=== PATIENT | male | born 1980 | race Caucasian/White ===

== ENCOUNTER 2019-09-12 15:39 | Outpatient (CLI) | payer OTHER, SELFPAY ==
--- NOTE | 2019-09-12 15:47 | MR_ITS ---
WS: [id number] MRI LEFT KNEE NONCONTRAST TECHNIQUE: Axial PD, coronal PD fat sat, coronal PD, sagittal PD, and sagittal PD fat-sat images светлана winkler. CLINICAL INFORMATION: S89.90XA Unspecified injury of unspecified lower leg, ini... COMPARISON: None. FINDINGS: Subluxation of the patella from the trochlear groove with diffuse edema involving the later al femoral condyle consistent with contusion and recent dislocation. Diffuse edema involving the medi al patellar retinaculum which appears completely torn. Lateral retinaculum is intact. Medial collater al ligament appears intact with small amount of fluid along the superficial fibers. Mild edema in the medial tibial plateau. Lateral collateral ligament appears intact. Small suspected medial patella ch ondral avulsion best seen on the coronal imaging adjacent to the medial patella facet. Distal quadriceps and patella tendons are intact. Slightly hypertrophic patella. Normal anterior and posterior cruciate ligaments. Moderate suprapatellar effusion. Small amount of edema in Hoffa's fat pad. Small amount of prepatellar and infrapatellar soft tissue edema. Mild chronic thinning of the medial and lateral meniscus. No acute appearing meniscal tears. MR/MR knee LT wo con* [id number] IMPRESSION: 1. Evidence of recent patellar dislocation with subluxed patella laterally tod ay. 2. Diffuse edema consistent with contusion and osteochondral injury involving the lateral femur consistent with recent patella dislocation. Medial retinaculu m appears completely torn. Lateral retinaculum appears intact. 3. Suspected patella chondral avulsion with small fragment adjacent to the med ial patella facet better seen on the coronal imaging. 4. Moderate suprapatellar effusion with subcutaneous edema. Medial and lateral collateral ligaments appear intact. 5. Normal ACL and PCL.
== END 2019-09-12 15:40 | disposition home or self-care (01) ==
LOC: RADWPI 15:41
PROVIDERS: Family Provider Nurse Practitioner Family; PCP Nurse Practitioner Family; Visit Provider Nurse Practitioner Family
DX: S89.92XA Unspecified injury of left lower leg, initial encounter; X58.XXXA Exposure to other specified factors, initial encounter; M25.462 Effusion, left knee; R60.9 Edema, unspecified
CPT/HCPCS: 73721

== ENCOUNTER → 2019-09-29 13:35 | Outpatient (BNVA) | payer OTHER, SELFPAY | PROVIDERS: Family Provider Nurse Practitioner Family; PCP Nurse Practitioner Family; Visit Provider Orthopaedic Surgery | DX: M25.562 Pain in left knee (principal) | CPT/HCPCS: 73562 ==

== ENCOUNTER 2019-11-13 09:15 | Day surgery (SDC) | payer OTHER, SELFPAY ==
[2019-11-12 13:22] VITALS: BMI 33.9
[2019-11-13] VITALS (11 sets, daily range): BP systolic 105–136; BP diastolic 63–95; PULSE 76–85; RESP 16–26; TEMP 36.2–36.8; O2SAT 92–97
--- NOTE | 2019-11-13 | SCC_ITS ---
Procedure Done: Diagnostic arthroscopy left knee 24.8 seconds of fluoroscopic guidance, for a cumulative dose of 1.8 mGy, was provided to Dr. Garnett by the radiology department. C-arm images of the LEFT knee were saved for the patient's permanent record. [facility]
[2019-11-13] MEDS: sodium chloride 0.9% 1,000 ML 30 ML IV (09:54)
--- NOTE | 2019-11-13 10:32 | ANES.PREANE2 ---
Pre-Anesthetic Assessment Pre-Anesthetic Assessment: Height/Weight: Height 1.83 m Weight 113.398 kg Temp Pulse Resp BP Pulse Ox 97.7 F 80 18 132/63 97 11/13/19 09:31 11/13/19 09:31 11/13/19 09:31 11/13/19 09:31 11/13/19 09:31 Preop Diagnosis: Left patellar instability Proposed Procedure: Operation Date: 11/13/19 11:25 Proposed Procedures p Patellofemoral Ligament Reconstruction Knee Arthroscopy 77413 M24.461(Left) - Rashad Garnett MD Familial anesthetic complications: None Was Beta Stephany taken within 24 hours: N/A Last intake: Intake Last Liquid Date 11/12/19 Last Liquid Time 23:00 Last Solid Date 11/12/19 Last Solid Time 23:00 Social: Social History: No alcohol and No tobacco Exam: Pre-Anes Outpt Exam: alert, oriented x 3, clear to auscultation bilaterally and regular rate & rhythm Airway: Cervical ROM: WNL MP: 3 Dentition: Full Metabolic: Metabolic: Morbid obesity Neuropsych: Neuropsych: Seizure (last one 2013 -epilepsy) Anesthetic Plan: ASA status: 1 Anesthesia: General Risk of > 500 ml blood loss (7ml/kg in children): No Meds/Allergies Current Medications: Current Medications Generic Name Dose Route Start Last Admin Trade Name Freq PRN Reason Stop Dose Admin Sodium Chloride 1,000 mls @ 30 ml s/hr 11/13/19 07:45 11/13/19 09:54 Sodium Chloride 0.9% IV 11/14/19 07:44 30 mls/hr .Q24H RONNI Administration PFSH Anesthesia PFSH: Social History Smoking and tobacco status: never smoked Data Anesthesia Cardiac Studies: No Data to Display
--- NOTE | 2019-11-13 10:51 | XR_ITS ---
WS: [id number] EXAM: Fluoroscopy provided to the orthopedic service for visualization during left knee surgery DATE OF EXAMINATION: 11/13/2019, 1300 hours COMPARISON: MRI of the left knee from 09/12/2019 HISTORY: 39 years old with recent patellar dislocation reduction injury with retinacular injury as well as cho ndral avulsion. FLUOROSCOPY TIME: 24.8 seconds FINDINGS: Fluoroscopy provided to the orthopedic service for visualization during left knee surgery. Fluoroscop ic spot images show skin leyla noted over the anterior medial leg and a single skin staple laterall y. Appears to be a defect within the patella presumably related to the surgical procedure.. Please se e operative report for further details. SC/C-arm Fluoroscopy [id number] IMPRESSION: Fluoroscopy provided to the orthopedic service for visualization during left kn ee surgery.
--- NOTE | 2019-11-13 11:17 | W.PM.OPSFHP ---
Same Day Surgery H&P Indication for Procedure/HPI DATE OF PROCEDURE: November 13, 2019 CHIEF COMPLAINT/INDICATIONFOR SURGICAL PROCEDURE: Current lateral patellar dislocations left knee. Patient has failed conservative measures and has elected to proceed with patellofemoral ligament reconstruction. Imaging is suggested no bony malalignment. MRI suggested cartilaginous injury to the lateral femoral condyle and there avulsion fracture off the medial patella. Diagnostic arthroscopy will be performed to evaluate the status the joint and remove loose fragments or debris that could affect his ultimate outcome PREOP DIAGNOSIS: Left patellar instability PLANNED PROCEDRUE: Operation Date: 11/13/19 11:25 Proposed Procedures p Patellofemoral Ligament Reconstruction Knee Arthroscopy 94235 M24.461(Left) - Rashad Garnett MD Medications/Allergies* Home Medications Medication Instructions Recorded Confirmed Type levetiracetam 750 mg tablet 750 mg PO BID 08/30/19 11/13/19 History Allergies/Adverse Reactions Allergy/AdvReac Type Severity Reaction Status Date / Time acetaminophen [From Tylenol] Allergy HIVES Verified 09/30/19 08:52 Current Medications: Generic Name Dose Route Start Last Admin Trade Name Freq PRN Reason Stop Dose Admin Sodium Chloride 1,000 mls @ 30 mls/hr 11/13/19 07:45 11/13/19 09:54 Sodium Chloride 0.9% IV 11/14/19 07:44 30 mls/hr .Q24H RONNI Administration Pertinent History/Comorbid Conditions* Social History Smoking and tobacco status: never smoked Pertinent Exam Findings alert, oriented x 3, clear to auscultation bilaterally and regular rate & rhythm Recommendations Surgery/Procedure today Coding Level of Care Code Acute Oceanographer Assistant for Rukhsana Ambrosio
--- NOTE | 2019-11-13 13:07 | P.OP_ITS ---
Operative Report Date of procedure: November 13, 2019 Pre-op Diagnosis: Left patellar instability Post-op diagnosis: same Post-op Findings: Patient had no significant chondromalacia or loose bodies within the knee joint. Procedure Done: Diagnostic arthroscopy left knee Medial patellofemoral ligament reconstruction with autogenous gracilis graft Implants: 7 by 25 mm Biosure Bradley [employer]hew PEEK interference screw Pathology: none sent Surgeon: Rashad Garnett Anesthesia: General Estimated blood loss (mL): 20 Tourniquet time (min): 53 Complications: None Findings: Patient had no chondromalacia or loose bodies within the left knee. He had no abnormal trochlear or other bony anatomy. He did have excessive mobility of his patella and is patella could be displaced over 50% of its width laterally. This was identical to the contralateral side but due to his persistent symptoms of instability a soft tissue ligament reconstruction was chosen Condition: stable Disposition: PACU Brief History: Oscar is a 39-year-old male with recurrent episodes of lateral patellofemoral instability. He failed a program of therapy. Due to persistent symptoms and normal bony anatomy a medial patellofemoral ligament was chosen to address the problem. An MRI suggested chondral injury over the lateral femoral condyle and a possible avulsed fragment from the medial patella diagnostic arthroscopy was chosen to evaluate the chondral surfaces and possibly remove loose bodies at present Procedure: The patient was taken to the operating room and given a general anesthesia. He was given 2 g of Ancef. He was prepped and draped in the supine position with a tourniquet on the left thigh. A timeout was performed. Initially the knee was entered through a standard inferior medial and inferior l ateral portal. The diagnostic portion of the arthroscopy was performed. Essentially no loose bodies or chondromalacia was identified. A decision was then made to proceed with the patellofemoral ligament reconstruction. The tourniquet was inflated 350 mmHg. A 4 cm long incision was made over the medial tibia and dissection carried down to the Pez anserine tendons. Sartorius fascia was split in line with the fibers and a well-developed semi-tendinosis and gracilis tendon were identified. The gross list tendon was dissected free distally and using a closed-end tendon stripper a tendon was harvested. On the back table it was freed of remaining muscular tissue. Both the tendon ends of the tendon were fixed with ultra braid suture. A second incision was made incorporating the medial portal extending proximally and posteriorly over a distance of 4 cm. Dissection was carried down through the skin to the medial extensor retinaculum and medial patella. Lecture cautery is used to dissect down to the medial patella at its midpoint. A Bradley [employer] Nephew guidepin was then driven from this point anteriorly and slightly proximally exiting over the central proximal patella. Over this was passed the Endobutton reamer. One end of the gracilis tendon sutures were passed through the eyelet of the pin and shuttled through this drilled tunnel in the patella. Dissection was then accomplished beneath the vastus medialis oblique is musculature exiting in the vastus intermedius insertion on the superior patella. This was used to grasp the free end of suture passed through the patella and this was retrieved bringing that free and down beneath the vastus medialis oblique us. C-arm was then brought into the wound and the exact position of Schottle's point determined being between the superior aspect the intercondylar notch and just distal to the possible extend to the articular cartilage and just anterior to a line extending from the posterior cortex of the femur. The Bradley [employer]hew guidepin was then passed from that point anteriorly and slightly proximally across the femur exiting the lateral skin. Over this was passed a 7 mm reamer to a depth of approximately 40 mm. The tunnel was completed with the Endobutton reamer. Both sets of the sutures were then passed through the eyelet and shuttled through the tunnel out the medial skin. Attention was then applied on the sutures until all lateral patellar translation was reduced to approximately 25% of the patellar with. A 7 x 25mm screw was then passed into the tunnel securing the tendons to bone. Gracilis tendon was sutured to the medial retinaculum with additional reinforcing 2-0 Vicryl sutures. The tourniquet was deflated. The sartorius fascia was closed with 2-0 Vicryl. The deep tissues were closed with 2-0 Vicryl. The skin was closed with skin leyla. Xeroflo gauze, 4 x 4's, and ABD pad, and a compressive Ricardo were applied. Patient was placed in a knee immobilizer, extubated, and taken recovery in stable condition.
--- NOTE | 2019-11-13 13:45 | SUR.PHASEI ---
1307 PATIENT TO PACU FROM OR. RR EVEN AND UNLABORED. SPO2 94-95% ON SIMPLE MASK AT 8L. DRESSING TO LEFT KNEE, CDI WITH BRACE IN PLACE.
--- NOTE | 2019-11-13 13:46 | SUR.PHASEI ---
1340 PATIENT TO OPS. RATES PAIN 7/10, RESTING ON GURNEY, DROWSY. TOLERATING ICE CHIPS.
[2019-11-13] MEDS: oxyCODONE 5 mg IR Tab/Cap PO (14:35)
--- NOTE | 2019-11-13 16:06 | ANE.PACU2 ---
Inpatient post-anesthesia follow up: Airway intact: Yes Vital signs: Temperature 98.3 F Pulse Rate 79 Respiratory Rate 18 Blood Pressure 105/71 Pulse Oximetry 97 Oxygen Delivery Me thod Room Air Oxygen Flow Rate 3 Fraction of Inspir ed Oxygen Hydration adequate: Yes Nausea and vomiting: No Pain level: 1 Mental status: Baseline
== END 2019-11-13 15:40 | disposition home or self-care (01) ==
PROVIDERS: PCP Nurse Practitioner Family; Visit Provider Orthopaedic Surgery
PROC: (CPT 27427; principal; 2019-11-13 11:25)
DX: M23.52 Chronic instability of knee, left knee (principal); M24.461 Recurrent dislocation, right knee
CPT/HCPCS: 27427; 12345; 73560; 76000; C1713; J0330; J0690; J2405; J2704; J3010; J3490; J7030